=== PATIENT | male | born 2005 | race Caucasian/White ===

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

== ENCOUNTER 2024-01-12 11:38 | Outpatient (CLI) | payer MEDICARE, MEDICAID ==
[~2024-01-12 11:38] MED LIST changes: -HYDR-3686 PO; -OLAN5TAB3 PO; +OLAN5TAB75 PO
== END 2024-01-12 23:59 | disposition home or self-care (01) ==
LOC: RAD 11:38
PROVIDERS: ATTEND Nurse Practitioner Psychiatric/Mental Health
DX: Z79.899 Other long term (current) drug therapy (principal)
CPT/HCPCS: 93005

== ENCOUNTER 2025-06-20 21:14 | Emergency (ER) | payer MEDICARE, MEDICAID ==
[~2025-06-20] VITALS: Ht 170.2 cm; Wt 108.0 kg
--- NOTE | 2025-06-20 22:00 | RADIOLOGY REPORT ---
EXAM: DI THORACIC SPINE LITD CLINICAL HISTORY: Back pain TECHNIQUE: Single 4 views of the thoracic spine WID: COMPARISON: None FINDINGS: There are 12 rib-bearing thoracic type vertebral bodies. Pedicles are intact. There are are Mild height loss less than 50% superior endplate compression fracture deformities of the mid to lower thoracic spine with cortical offset. Visualized portions of the lungs are clear. Overlying soft tissues intact. IMPRESSION: 1. Acute/recent appearing mild, multiple less than 50% height loss superior endplate compression fracture deformities of the mid to lower thoracic spine.
--- NOTE | 2025-06-20 23:09 | Physician Documentation ---
History of Present Illness ~ Chief Complaint: Back Pain Stated Complaint: BACK PAIN Time Seen by MD: 23:05 OK to notify your PCP?: Yes Source: patient, RN/MD, RN notes reviewed, old records Mode of Arrival: POV Exam Limitations: no limitations HPI 20-year-old male reports to the ER with chief complaint of mechanical fall. Patient notes that he did not feel a crack because he was asleep, might have been sleep walking. Patient also felt like the pain went to the front just for a minute and was kind of in the stomach, hurts to breathe". Leg and arm hurts to make any movements. Thinks fall happened around 830 through 8:45 p.m. he also woke up covered in vomit. Medication Reconciliation Allergies: Coded Allergies: No Known Allergies (Unverified , 11/20/20) Scheduled Cyclobenzaprine* (Cyclobenzaprine*), 1 TAB PO HS Escitalopram Oxalate (Lexapro), 2 TAB PO DAILY, (Reported) Olanzapine (Olanzapine), 1 TAB PO BID, (Reported) Past Medical History Past Medical History: Anxiety Other Past Medical History: Autistic. Past Surgical History: no surgical history Alcohol Use: None Drug Use: none Review of Systems All Other Systems at this time: Reviewed and Negative ROS As stated above in the HPI, otherwise all systems are reviewed and negative. Physical Exam Physical Exam Vital Signs: RN Vital Signs have been reviewed: Yes, Temperature: 97.2, Source: Temporal, Heart Rate: 120, Respiratory Rate: 20, BP: 114/77, Pulse Oximetry: 96, Weight: 108.000 Oxygen Flow Rate: 0 Physical Exam General: The patient is well developed, well nourished, nontoxic appearing and is in no acute distress. Skin: [place], warm and dry with no rashes. HEENT: Head was normocephalic and atraumatic. Eyes - pupils equal, round, reactive to light and accommodation. Extraocular movements were intact. C onjunctivae were nonicteric. The mouth and oropharynx were clear with moist mucous membranes. There were no pharyngeal exudates or erythema. Neck: Supple and nontender. There was no jugular venous distention, lymphadenopathy, thyromegaly or masses. Chest: Clear to auscultation bilaterally without wheezes, rales or rhonchi. No accessory muscle use. No dullness to percussion. Heart: Rapid heart rate. S1, S2. No murmurs. Palpation of the chest wall was normal. No rubs or thrills. Abdomen: Soft, nontender and nondistended. Positive bowel sounds. No guarding or rebound. No hepatosplenomegaly or palpable masses. Back: Midline point tenderness at T9- T11. Extremities: No cyanosis, clubbing or edema. The patient moves all extremities. Pulses were equal and symmetric. Neurologic: Motor sensory grossly intact. Psychologic: The patient was oriented to person, place and time. The patient demonstrated appropriate judgement and insight. Progress Results/Orders Reviewed/noted all lab results: Yes Results/Orders Orders - STEVAN COKER MD Ct Thoracic Spine (06/20/25 23:15) Completed Orders - STEVAN COKER MD Ct Thoracic Spine (06/20/25 23:15) Naproxen Tablet (Naprosyn Tablet) (06/20/25 23:20) Cyclobenzaprine Tablet (Flexeril Tablet) (06/20/25 23:20) Hydrocodone/Apap 5/325mg Tab ([place] 5/32 (06/20/25 23:20) Hydrocodone/Apap 5/325mg Tab ([place] 5/32 (06/21/25 00:35) Medications Received in ER Medications (Trade) Dose Ordered Sig/Kurt Route PRN Reason Start Time Stop Time Status Last Admin Dose Admin (Naprosyn tablet) 500 mg ONCE ONCE PO 06/20/25 23:20 06/20/25 23:21 DC 06/20/25 23:32 500 MG (Flexeril tablet) 10 mg ONCE ONCE PO 06/20/25 23:20 06/20/25 23:21 DC 06/20/25 23:33 10 MG ([place] 5/325mg tablet) 1 tab ONCE ONCE PO 06/20/25 23:20 06/20/25 23:21 DC 06/20/25 23:33 1 TAB ([place] 5/325mg tablet) 1 tab ONCE ONCE PO 06/21/25 00:35 06/21/25 00:37 DC 06/21/25 00:45 1 TAB Vital Signs 06/20/25 06/21/25 21:18 00:47 Temp 97.2 98.6 Pulse 120 99 Resp 20 20 B/P (MAP) 114/77 114/76 Pulse Ox 96 99 O2 Flow Rate 0 Re-Evaluation Re-Evaluation : Re-Evaluation: Improved Progress Patient was given pain medications anti-inflammatories muscle relaxants reassurance and discharged home. Cat scan was obtained that showed loss of v ertebral height at multiple endplates. Patient did present with significant spinal tenderness however the degree and mechanism of his injury suggest that there might be a congenital finding on CAT scan which was not read by the radiologist. Nevertheless he should follow up on outpatient basis MRI would probably be warranted. Patient was treated medications and discharged home. EKG/XRAY/CT/US/VASC/MRI Bone/Soft Tissue X-Ray (Spine) : Interpreted By: radiologist Views: 1 VIEW Additional Comment Patient: HANG HIDALGO Medical Record: [id number] ELIZABETH EDGEWOOD : 2005, Age: 20 Sex: Male Location: ER Patient Status: REG ER Service Date/Time: 06/20/252140 Ordering Physician: ANA CRISTINA RESTREPO BRUSH MAKER MACHINE Exam: THORACIC SPINE LITD EXAM: DI THORACIC SPINE LITD CLINICAL HISTORY: Back pain TECHNIQUE: Single 4 views of the thoracic spine WID: COMPARISON: None FINDINGS: There are 12 rib-bearing thoracic type vertebral bodies. Pedicles are intact. There are are Mild height loss less than 50% superior endplate compression fracture deformities of the mid to lower thoracic spine with cortical offset. Visualized portions of the lungs are clear. Overlying soft tissues intact. IMPRESSION: 1. Acute/recent appearing mild, multiple less than 50% height loss superior endplate compression fracture deformities of the mid to lower thoracic spine. Electronically Signed by:ROSCOE SANDERS MD Date & Time: 06/20/252157 Dictated by: ROSCOE SANDERS MD Dictation date and time: 06/20/252157 Primary Care Provider: NO PRIMARY CARE PROVIDER cc: ANA CRISTINA RESTREPO BRUSH MAKER MACHINE ~ CT : CT: Thoracic spine Impression EXAM: CT CT THORACIC SPINE INDICATION: pain fall COMPARISON: DI THORACIC SPINE LITD on DOS: 06/20/25 TECHNIQUE: Multiple axial CT images of the thoracic spine were obtained using bone algorithm. Axial and coronal reformatting was done. Bone and soft tissue windows were reviewed. Radiation Dose Information: CT Dose: CTDI volume is 27.8 mGy. Dose-length product is 966.7 mGy*cm FINDINGS: There are age-indeterminate mild compression fractures of the superior endplates of T6 through T11. There is no retropulsion. The alignment is maintained. There is no CT evidence of high-grade spinal canal or neural foraminal stenosis. The paraspinal soft tissues are unremarkable. IMPRESSION: 1. Age-indeterminate mild compression fractures of the superior endplates of T6 through T11. Comparison with any prior imaging may be helpful in assessing acuity and interval change. MRI may be beneficial in further assessment as clinically indicated. 2. Radiation optimization: All CT scans at this facility use at least one of these dose optimization techniques: automated exposure control mA and/or kV adjustment per patient size (includes targeted exams where dose is matched to clinical indication) or iterative reconstruction. Electronically Signed by:CHAZ BOND MD Date & Time: 06/20/252348 Dictated by: CHAZ BOND MD Dictation date and time: 06/20/252348 Primary Care Provider: NO PRIMARY CARE PROVIDER cc: STEVAN COKER MD ~ Medical Decision Making Additional information obtaine: old records Findings CT shows in place compression fractures Differential Dx:Considerations: DJD, Fracture, Musculoskeletal pain, Strain Departure Disposition: 01 HOME / SELF CARE / HOMELESS Impression: Primary Impression: multiple Thoracic compression fractures Additional Impressions: Fall Qualified Codes: W19.XXXA - Unspecified fall, initial encounter Back pain Qualified Codes: M54.6 - Pain in thoracic spine Condition: Stable Additional Instructions: Follow up with PMD outpatient MRI. Referrals: NO PRIMARY CARE PROVIDER (PCP) Prescriptions Cyclobenzaprine* (Cyclobenzaprine*) 10 Mg Tablet 1 TAB PO HS for muscle spasms for 10 Days, #10 TAB 0 Refills Prov: STEVAN COKER MD 06/20/25 Education Educated: Patient, Family Educated regarding: diagnosis, treatment, prognosis, need for follow up, other Signature Scribe Signature: Scribed for Stevan Coker MD by Jade Chakraborty . 06/20/25 23:19 Attestation: The note accurately reflects work and decisions made by me.Stevan Coker MD 06/20/25 23:09 STEVAN COKER MD Jun 20, 2025 23:09 JADE COKER Jun 20, 2025 23:24
[2025-06-20] MEDS ORDERED: CYCL-1 PO (23:19)
[2025-06-20] MEDS: HYDROcodone/acetaminophen 5mg/325mg tablet PO ONE (23:33)
--- NOTE | 2025-06-20 23:51 | RADIOLOGY REPORT ---
EXAM: CT CT THORACIC SPINE INDICATION: pain fall COMPARISON: DI THORACIC SPINE LITD on DOS: 06/20/25 TECHNIQUE: Multiple axial CT images of the thoracic spine were obtained using bone algorithm. Axial and coronal reformatting was done. Bone and soft tissue windows were reviewed. Radiation Dose Information: CT Dose: CTDI volume is 27.8 mGy. Dose-length product is 966.7 mGy*cm FINDINGS: There are age-indeterminate mild compression fractures of the superior endplates of T6 through T11. There is no retropulsion. The alignment is maintained. There is no CT evidence of high-grade spinal canal or neural foraminal stenosis. The paraspinal soft tissues are unremarkable. IMPRESSION: 1. Age-indeterminate mild compression fractures of the superior endplates of T6 through T11. Comparison with any prior imaging may be helpful in assessing acuity and interval change. MRI may be beneficial in further assessment as clinically indicated. 2. Radiation optimization: All CT scans at this facility use at least one of these dose optimization techniques: automated exposure control mA and/or kV adjustment per patient size (includes targeted exams where dose is matched to clinical indication) or iterative reconstruction.
[2025-06-21] MEDS: HYDROcodone/acetaminophen 5mg/325mg tablet PO ONE (00:45)
[2025-06-21 00:47] VITALS: BP 114/76; PULSE 99; RESP 20; TEMP 98.6; O2SAT 99
== END 2025-06-21 00:48 | disposition home or self-care (01) ==
LOC: ER 21:15
DX: S22.068A Other fracture of T7-T8 thoracic vertebra, initial encounter for closed fracture (principal); Z79.899 Other long term (current) drug therapy; F41.9 Anxiety disorder, unspecified; W18.39XA Other fall on same level, initial encounter; Y93.89 Activity, other specified; Y92.89 Other specified places as the place of occurrence of the external cause; Y99.8 Other external cause status
CPT/HCPCS: 72070; 72128; 99284